=== PATIENT | male | born 1985 | race African-American/Black ===

== ENCOUNTER 2017-08-10 12:19 | Emergency (ER) | payer OTHER, MEDICAID ==
[~2017-08-10] VITALS: Ht 170.2 cm; Wt 89.5 kg
[~2017-08-10 12:19] MED LIST: BACT800T5 PO; CEPH500C3 PO; DILA8TAB4 PO
[2017-08-10 12:20] VITALS: BP 143/89; PULSE 77; RESP 16; TEMP 98.6; O2SAT 100
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
[2017-08-10] MEDS ORDERED: ROBA500T PO (12:49)
[2017-08-10] MEDS ORDERED: IBUP1TAB7 PO (12:49)
[2017-08-10] MEDS ORDERED: HYDR8TAB PO (12:51)
[2017-08-10] MEDS ORDERED: IBUPROFEN 800 MG TAB PO ONE (13:00)
[2017-08-10] MEDS ORDERED: METHOCARBAMOL 500 MG TAB PO ONE (13:00)
== END 2017-08-10 13:14 | disposition home or self-care (01) ==
LOC: NEPK 12:19
DX: S16.1XXA Strain of muscle, fascia and tendon at neck level, initial encounter (principal); M54.5 Low back pain; V89.2XXA Person injured in unspecified motor-vehicle accident, traffic, initial encounter
CPT/HCPCS: 99283